=== PATIENT | male | born 1980 | race Caucasian/White ===

== ENCOUNTER → 2025-03-29 | Day surgery (SDC) | payer BC ==
[~2025-03-29] MED LIST: PROPOFOL 10 MG/ML 20 ML VIAL IV ONE
[2025-03-29] MEDS: IV FLUID CONTINUATION 1,000 ML IV ONE (10:10)
[2025-03-29] MEDS: LACTATED RINGERS 1,000 ML IV SCH (10:12)
[2025-03-29 10:19] VITALS: TEMP 97.3
--- NOTE | 2025-03-29 10:47 | P.PCN ---
Date of Procedure: 03/29/25 Procedure(s) Performed: BRIEF HISTORY: Patient is a 45-year-old pleasant white male scheduled for an elective colonoscopy as a part of screening for colon cancer. PROCEDURE PERFORMED: Colonoscopy. PREOPERATIVE DIAGNOSIS: Screening for colon cancer. IV sedation per Anesthesia. PROCEDURE: After informed consent was obtained, the patient, was brought into the endoscopy unit. IV sedation was administered by Anesthesia under continuous monitoring. Digital rectal examination was normal. Initially the Olympus CF-160 flexible video colonoscope was then inserted in the rectum, gradually advanced into the cecum without any difficulty. Careful examination was performed as the scope was gradually being withdrawn. Ileocecal valve and the appendiceal orifice were visualized and appeared normal. Prep was excellent. Mucosa of the cecum appeared normal. The ileocecal valve there is a 4 mm polyp removed by cold biopsy. In the transverse colon there was a 5 mm polyp removed by cold biopsy. Rest of the, ascending colon, transverse colon, descending colon, appeared normal. In the sigmoid colon there is a 3 mm polyp removed with cold biopsy. Rest of the sigmoid colon, and rectum appeared normal. Retroflexion was performed in the rectum and small internal were seen. The patient tolerated the procedure well. IMPRESSION: 4 mm polyp of the ileocecal valve status post cold biopsy 5 mm transverse colon polyp status post cold biopsy 3 mm sigmoid colon polyp status post cold biopsy Scattered sigmoid diverticulosis RECOMMENDATIONS: Findings of this examination were discussed with the patient as well as his family. He was advised to follow the biopsy results. If the biopsy reveals adenoma he can have repeat colonoscopy in 5 years.
[2025-03-29 11:17] VITALS: BP 129/84; PULSE 48; RESP 12
== END ==
LOC: ORWHC2ENDO 09:36
PROVIDERS: ATTEND Internal Medicine Gastroenterology
DX: Z12.11 Encounter for screening for malignant neoplasm of colon (principal); D12.3 Benign neoplasm of transverse colon; K57.30 Diverticulosis of large intestine without perforation or abscess without bleeding; K63.5 Polyp of colon
CPT/HCPCS: 88305; 45380; J2704